=== PATIENT | male | born 1990 | race Caucasian/White ===

== ENCOUNTER 2016-06-24 16:00 | Emergency (ER) | payer MEDICARE ==
[2016-06-24 17:03] LABS: HEMOGLOBIN 17.9 gm/dl (14.0-17.5); RED BLOOD COUNT 5.62 M/UL (4.20-5.50)
[2016-06-24 17:11] LABS: WHITE BLOOD COUNT 30.4 K/UL (4.5-11.0)
[2016-06-24 17:13] LABS: BUN/CREATININE RATIO 18 (0-10)
== END 2016-06-24 18:23 | disposition home or self-care (01) ==
LOC: ER1 16:00
PROVIDERS: Emergency Medicine
DX: R11.2 Nausea with vomiting, unspecified (principal); D72.829 Elevated white blood cell count, unspecified; Z90.81 Acquired absence of spleen; Z90.49 Acquired absence of other specified parts of digestive tract
CPT/HCPCS: 36415; 80053; 82150; 83690; 85025; 96361; 96374; 99284; J2405